=== PATIENT | female | born 1985 | race Hispanic/Latino ===

== ENCOUNTER 2018-11-28 13:05 | Outpatient (CLI) | payer OTHER ==
--- NOTE | 2018-11-28 16:22 | CT ---
CT ABDOMEN PELVIS WITHOUT IV CONTRAST: HISTORY:Left lower quadrant pain, left upper quadrant pain, adnexal pain. COMPARISON: None DISCLAIMER: Absence of IV contrast reduces the sensitivity of the exam particularly for the evaluatio n of solid organs. FINDINGS: The lung bases are clear. No free air is seen in the abdomen or pelvis. No calcified gallstones are n oted. No calculi are seen in the kidneys, ureters or the urinary bladder. No hydroureteronephrosis seen on either side. There is a tiny amount of free fluid in the pelvis. Uterus and ovaries are present. The small bowel loops are not abnormally dilated. A normal-appearing appendix is seen. No acute osseo us abnormalities are noted. IMPRESSION: No CT evidence of urinary tract calculi/obstruction or appendicitis.
== END 2018-11-28 13:06 | disposition home or self-care (01) ==
LOC: SCSCT 13:05
PROVIDERS: ATTEND Family Medicine
DX: R10.32 Left lower quadrant pain (principal); R10.12 Left upper quadrant pain; R10.2 Pelvic and perineal pain
CPT/HCPCS: 74176

== ENCOUNTER 2018-12-02 13:38 | Emergency (ER) | payer OTHER ==
[2018-12-02 14:54] LABS: Bilirubin Negative (Negative); Blood, Urine Negative (Negative); Clarity Slightly Cloudy (Clear); Glucose, Urine (Dipstick) Negative (Negative); Leukocyte Negative (Negative); Nitrite Negative (Negative); Protein, Urine (Dipstick) Negative (Neg-Trace); Urobilinogen 0.2 mg/dL (Less than 2)
[2018-12-02 14:55] LABS: Pregnancy Test - Urine (BHCG) Negative (Negative); Pregu Control Background? CLEAR/WHITE (CLR/WHITE); Pregu Control Bar Appear? YES (CONTROL BAR); Specific Gravity 1.026 (1.002-1.036)
--- NOTE | 2018-12-02 15:16 | ULT ---
US Pelvic Transvag W Doppler History: Pain Comparison: CT abdomen and pelvis November 28, 2018 Findings: Real-time grayscale, color, and spectral analysis of the pelvis was performed transabdomina l and transvaginal approach. The uterus is retroflexed. No significant free fluid. Adequate vascular flow to both ovaries. Endometrial thickness is 1 cm. Impression: Normal examination of the pelvis. Normal ovaries.
== END 2018-12-02 15:30 | disposition home or self-care (01) ==
LOC: SCSER 13:38
DX: R10.32 Left lower quadrant pain (principal); F41.9 Anxiety disorder, unspecified; F32.9 Major depressive disorder, single episode, unspecified
CPT/HCPCS: 76856; 81003; 81025